=== PATIENT | male | born 1940 | race Caucasian/White ===

== ENCOUNTER 2025-05-23 11:59 | Emergency (ER) | payer OTHER, BC ==
[2025-05-23] MEDS ORDERED: Aspirin 325 MG Tab.EC PO ONE (13:07)
== END 2025-05-23 13:00 | disposition home or self-care (01) ==
LOC: LB.ED 11:59
DX: I10 Essential (primary) hypertension (principal); E86.0 Dehydration; Z90.49 Acquired absence of other specified parts of digestive tract; Z79.899 Other long term (current) drug therapy; Z79.82 Long term (current) use of aspirin; Z91.018 Allergy to other foods; Z91.048 Other nonmedicinal substance allergy status; Z91.040 Latex allergy status
CPT/HCPCS: 99283